=== PATIENT | male | born 1965 | race Caucasian/White ===

== ENCOUNTER 2017-05-07 18:20 | Emergency (ER) | payer MEDICARE ==
[~2017-05-07] VITALS: Ht 185.4 cm; Wt 99.8 kg
[~2017-05-07 18:20] MED LIST: CPR500T PO; KETO-22 PO; METR375C PO; METR500T PO; OXYC-12 PO; OXYC40TA46 PO; PRM25T PO; [UNRECOGNIZED DRUG - REMARK]
[2017-05-07] MEDS ORDERED: ESCI20TA45 (18:51)
--- NOTE | 2017-05-07 18:52 | ED EENT ---
History of Present Illness General Chief Complaint: Dental Problems/Pain Stated Complaint: JAW PAIN/DISCOMFORT Source: patient History of Present Illness Time seen by provider: 18:45 Initial Comments PT ARRIVES VIA POV FROM HOME C/O SEVERE PAIN IN RIGHT JAW FOR 3-4 DAYS--WOKE UP WITH POPPING IN RIGHT JAW, NOW HAS SEVERE PAIN IN JAW AND IS UNABLE TO OPEN MOUTH DUE TO PAIN NO INJURY NO FEVER OR RECENT ILLNESS NO DENTAL PAIN--DOES NOT HAVE ANY BACK TEETH NO HISTORY OF SIMILAR C/O PAIN RADIATING TO RIGHT EAR AND HAS A MILD/DULL FRONTAL HEADACHE RATES PAIN 2/10 AT REST, 10/10 AT WORST NO RELIEF WITH HIS REGULAR PAIN MEDICATIONS, ( TAKES PAIN MEDICATION FOR NEUROPATHY/RADICULOPATHY FROM CHRONIC BACK PAIN / LEFT LEG PAIN--OXYCONTIN + OXYCODONE) PT DOES STATE HE WAS CHEWING GUM THE NIGHT BEFORE ONSET OF SYMPTOMS, AND DOES NOT NORMALLY CHEW GUM. PCP: DR. MORE Allergies and Home Medications Allergies Coded Allergies: butorphanol (Verified Allergy, Unknown, 09/10/07) Home Medications Cyclobenzaprine HCl 10 Mg Tablet, 10 MG PO Q8H, #15 Prescribed by: BRIGETTE VILLALPANDO on 05/07/171901 Escitalopram Oxalate 20 Mg Tablet, (Reported) Methylprednisolone 4 Mg Tab.ds.pk, 4 MG PO UD, #1 Prescribed by: BRIGETTE VILLALPANDO on 05/07/171901 Oxycodone HCl 40 Mg Tab.er.12h, 40 MG PO, (Reported) Oxycodone Hcl/Acetaminophen 1 Each Tablet, 1-2 PO Q4H PRN, (Reported) Promethazine Hcl 25 Mg Tablet, 1 TAB PO QID PRN, #40 (Reported) Review of Systems Constitutional: no symptoms reported Eyes: No Symptoms Reported Ears: See HPI Nose: no symptoms reported Mouth: see HPI Throat: no symptoms reported Respiratory: no symptoms reported Cardiovascular: no symptoms reported Gastrointestinal: no symptoms reported Musculoskeletal: see HPI Skin: no symptoms reported, No rash Neurological: See HPI, Headache, Pre-Existing Deficit Hematologic/Lymphatic: No Symptoms Reported Immunological/Allergic: no symptoms reported Past Edsufub-Mlgjzi-Fsogds Hx Patient Social History Alcohol Use: Denies Use Recreational Drug Use: No Smoking Status: Current Everyday Smoker (1 09/05 PPD) Type Used: Cigarettes Recent Foreign Travel: No Contact w/Someone Who Travel: No Recent Hopitalizations: No Immunizations Up To Date Tetanus Booster (TDap): Less than 5yrs Seasonal Allergies Seasonal Allergies: No Surgeries History of Surgeries: Yes Surgeries: Adenoidectomy, Tonsillectomy Respiratory History of Respiratory Disorde: Yes Respiratory Disorders: Pneumonia Cardiovascular History of Cardiac Disorders: No Neurological History of Neurological Disord: Yes Neurological Disorders: Neuropathy Reproductive System Hx Reproductive Disorders: No Sexually Transmitted Disease: No HIV/AIDS: No Genitourinary History of Genitourinary Disor: No Gastrointestinal History of Gastrointestinal Di: Yes Gastrointestinal Disorders: Hemorrhoids Musculoskeletal History of Musculoskeletal Dis: Yes (CHRONIC BACK PAIN WITH LEFT LEG RADICULOPATHY/NEUROPATHY) Musculoskeletal Disorders: Chronic Back Pain Endocrine History of Endocrine Disorders: No HEENT History of HEENT Disorders: No Cancer History of Cancer: No Psychosocial History of Psychiatric Problem: No Integumentary History of Skin or Integumenta: No Blood Transfusions History of Blood Disorders: No Family Medical History Significant Family History: Diabetes Physical Exam Vital Signs Vital Sign - Last 12Hours 05/07/17 18:44 Temp 96.2 Pulse 88 Resp 18 B/P (MAP) 156/97 Pulse Ox 98 O2 Delivery Room Air General Appearance: WD/WN, no apparent distress Eyes: bilateral eye normal inspection, bilateral eye PERRL, bilateral eye EOMI Ears: bilateral ear auricle normal, bilateral ear canal normal, bilateral ear TM normal Nose: normal inspection Mouth/Throat: pharynx normal, dental tenderness, No mandibular swelling, No maxillary swelling, other (BACK TEETH MISSING BILATERALLY. TENDERNESS OVER RIGHT TMJ, WITH MUCH TRISMUS DUE TO RIGHT TMJ PAIN ON MOUTH OPENING. NO CLICKING /GRINDING/POPPING OF TMJ AND SYMMETRIC TMJ JOINT MOVEMENT. NO POST AURICULAR PAIN OR TENDERNESS. NO RASH. NO PARESTHESIAS OR FACIAL DROOP) Neck: non-tender, full range of motion, supple, normal inspection Cardiovascular: regular rate, rhythm, no murmur Respiratory: normal breath sounds, no respiratory distress, no accessory muscle use Neurologic/Psychiatric: dietitian consultant II-XII nml as tested, no motor/sensory deficits, alert, normal mood/affect, oriented x 3 Skin: normal color, warm/dry, No rash Progress/Results/Core Measures Results/Orders My Orders Orders - BRIGETTE VILLALPANDO DO Ketorolac Injection (Toradol Injection) (05/07/17 19:00) Orphenadrine Injection (Norflex Injectio (05/07/17 19:00) Diphenhydramine Injection (Benadryl Inje (05/07/17 19:00) Prednisone Tablet (Deltasone Tablet) (05/07/17 19:00) Rx-Cyclobenzaprine Tablet (Rx-Flexeril T (05/07/17 18:58) Vital Signs/I&O Vital Sign - Last 12Hours 05/07/17 18:44 Temp 96.2 Pulse 88 Resp 18 B/P (MAP) 156/97 Pulse Ox 98 O2 Delivery Room Air Departure Impression Impression: Primary Impression: RIGHT TMJ PAIN Disposition: HOME, SELF-CARE Condition: Stable Departure-Patient Inst. Referrals: YAAKOV MORE MD (PCP/Family) Primary Care Physician Patient Instructions: Temporomandibular Joint (TMJ) Disorders (DC) Add. Discharge Instructions: ALTERNATE ICE AND HEAT TO AREA AT 20 MINUTE INTERVALS CONTINUE YOUR REGULAR MEDICATIONS PRESCRIBED FOLLOW UP WITH YOUR DR IN 2-3 DAYS IF NO BETTER All discharge instructions reviewed with patient and/or family. Voiced understanding. Scripts Cyclobenzaprine HCl (Cyclobenzaprine HCl) 10 Mg Tablet 10 MG PO Q8H, #15 TAB Prov: BRIGETTE VILLALPANDO DO 05/07/17 Methylprednisolone (Medrol) 4 Mg Tab.ds.pk 4 MG PO UD, #1 PKG Prov: BRIGETTE VILLALPANDO DO 05/07/17 BRIGETTE VILLALPANDO DO May 07, 2017 18:52
[2017-05-07] MEDS ORDERED: RX-CYCLOBENZAPRINE 10 MG (FLEXERIL) TAB PPK#3 PO STA (18:58)
[2017-05-07] MEDS ORDERED: KETOROLAC 60 MG/2 ML VIAL IM ONE (19:00)
[2017-05-07] MEDS ORDERED: diphenhydrAMINE 50 MG/ML INJ (BENADRYL) IM ONE (19:00)
[2017-05-07] MEDS ORDERED: predniSONE 20 MG TAB PO ONE (19:00)
[2017-05-07] MEDS ORDERED: ORPHENADRINE 60 MG/2 ML (NORFLEX) AMP IM ONE (19:00)
[2017-05-07] MEDS ORDERED: CYCL10TA9 PO (19:02)
[2017-05-07] MEDS ORDERED: METH4TAB PO (19:02)
[2017-05-07 19:43] VITALS: BP 146/84
== END 2017-05-07 19:42 | disposition home or self-care (01) ==
LOC: EDUNIT# 18:20 → ER 18:22
DX: R68.84 Jaw pain (principal); F17.210 Nicotine dependence, cigarettes, uncomplicated; Z90.49 Acquired absence of other specified parts of digestive tract; Z87.09 Personal history of other diseases of the respiratory system
CPT/HCPCS: 96372; 99284

== ENCOUNTER → 2018-10-10 | Outpatient (CLI) | payer MEDICARE ==
[~2018-10-10] MED LIST changes: +CYCL10TA9 PO; +ESCI20TA45; +METH4TAB PO
--- NOTE | 2018-10-10 12:20 | Diagnostic Imaging Report ---
PROCEDURE: US carotid duplex, bilateral. TECHNIQUE: Multiple real-time grayscale images were obtained over the carotid arteries in various projections, bilaterally. Additional spectral analysis and color Doppler duplex images were also obtained. INDICATION: Amaurosis fugax. FINDINGS: No significant plaquing is identified in either carotid system. Velocities are normal bilaterally. No velocity elevation or stenosis is seen. Note is made that the vertebral arteries are not visualized. Parameters based on the consensus panel Garcia-Scale and Doppler ultrasound criteria published July 2003, Radiology, Volume 229. DOPPLER (peak systolic velocity M/S Right Left CCA 0.91 0.77 ICA Proximal 0.60 0.43 ICA Mid 0.63 0.69 ICA Distal 0.57 0.80 RATIO 0.69 1.04 ECA 0.91 0.87 VERT NOT SEEN NOT SEEN IMPRESSION: No evidence of a hemodynamically significant carotid stenosis. Dictated by: Dictated on workstation # [id number]
== END ==
LOC: RAD 11:11
PROVIDERS: ATTEND Internal Medicine
DX: G45.3 Amaurosis fugax (principal)
CPT/HCPCS: 93880

== ENCOUNTER 2018-10-12 08:44 | Emergency (ER) | payer MEDICARE ==
[~2018-10-12] VITALS: Ht 185.4 cm; Wt 108.9 kg
[2018-10-12] MEDS ORDERED: LIDOCAINE 1% INJ 20 ML 20 ML VIAL ONE (09:07)
[2018-10-12] MEDS ORDERED: LIDOCAINE 1% INJ 20 ML 20 ML VIAL INJ ONE (09:15)
--- NOTE | 2018-10-12 09:27 | ED Lower Extremity ---
General Chief Complaint: Lower Extremity Stated Complaint: FOREIGN OBJECT LT FOOT Source: patient, family Exam Limitations: no limitations History of Present Illness Date Seen by Provider: Oct 12, 2018 Time Seen by Provider: 09:22 Initial Comments This 50-year-old white male presents after sustaining a puncture wound to his left foot. Patient has a foreign body in his foot. Patient denies loss sensation range of motion extremity. Patient denies other injury. Patient is not diabetic. The foreign body penetrated through the patient's sock. He was not wearing tennis shoes. Allergies and Home Medications Allergies Coded Allergies: butorphanol (Verified Allergy, Unknown, 09/10/07) Home Medications Cyclobenzaprine HCl 10 Mg Tablet, 10 MG PO Q8H Prescribed by: BRIGETTE VILLALPANDO on 05/07/171901 Methylprednisolone 4 Mg Tab.ds.pk, 4 MG PO UD Prescribed by: BRIGETTE VILLALPANDO on 05/07/171901 Oxycodone Hcl/Acetaminophen 1 Each Tablet, 1-2 PO Q4H PRN, (Reported) Promethazine Hcl 25 Mg Tablet, 1 TAB PO QID PRN, (Reported) Patient Home Medication List Home Medication List Reviewed: Yes Review of Systems Constitutional: No chills EENTM: no symptoms reported Respiratory: No cough Cardiovascular: No chest pain Gastrointestinal: No abdominal pain, No nausea Genitourinary: no symptoms reported Musculoskeletal: No back pain Skin: see HPI, other Psychiatric/Neurological: No Symptoms Reported (puncture wound left foot.) Past Yewhxnt-Uiunjh-Qaqmiu Hx Past Med/Social Hx: Reviewed Nursing Past Med/Soc Hx Patient Social History Type Used: Cigarettes Recent Hopitalizations: No Immunizations Up To Date Tetanus Booster (TDap): Less than 5yrs Seasonal Allergies Seasonal Allergies: No Past Medical History Surgeries: Yes Adenoidectomy, Tonsillectomy Respiratory: Yes Pneumonia Cardiac: No Neurological: Yes Neuropathy Reproductive Disorders: No Sexually Transmitted Disease: No HIV/AIDS: No Genitourinary: No Gastrointestinal: Yes Hemorrhoids Musculoskeletal: Yes (CHRONIC BACK PAIN WITH LEFT LEG RADICULOPATHY/NEUROPATHY) Chronic Back Pain Endocrine: No HEENT: No Cancer: No Psychosocial: No Integumentary: No Blood Disorders: No Family Medical History Diabetes Physical Exam Vital Signs Capillary Refill : Height, Weight, BMI Height: 6'1.00" Weight: 220lbs. oz. 99.354225zb; BMI Method:Stated General Appearance: WD/WN, mild distress HEENT: normal ENT inspection Neck: normal inspection Cardiovascular: regular rate, rhythm Respiratory: lungs clear Gastrointestinal: normal bowel sounds, non tender Feet: left foot other (there is a puncture wound to the distal portion plantar aspect left foot over the metatarsal phalangeal region of the middle toe.) Neurologic/Tendon: normal sensation, normal motor functions, normal tendon functions Neurologic/Psychiatric: no motor/sensory deficits, alert, normal mood/affect, oriented x 3 Skin: normal color, other (puncture wound with foreign body left foot) Progress/Results/Core Measures Results/Orders My Orders Orders - YAAKOV CIFUENTES MD Lidocaine 1% Inj 20 Ml (Xylocaine 1% Inj (10/12/18 09:15) Lidocaine 1% Inj 20 Ml (Xylocaine 1% Inj (10/12/18 09:07) Dipht,Pertuss(Acell),Tet Adult (Boostrix (10/12/18 09:30) Progress Progress Note : Time: 09:24 Progress Note After discussion of the risks and benefits of the procedure the patient was agreeable to an incision and exploration for his foreign body left foot. Betadine was used topically to the skin. 1 percent plain Xylocaine was used for local anesthesia. Small incision was created with a number 11 blade. The foreign body which consisted of the terminal one fourth of a toothpick was removed from the subcutaneous tissue. The wound was cleaned and dressed. The patient received a TDP injection Departure Impression Primary Impression: Foreign body (FB) in soft tissue Disposition: 01 HOME, SELF-CARE Condition: Improved Departure-Patient Inst. Decision time for Depature: 09:26 Referrals: YAAKOV MORE MD (PCP/Family) Primary Care Physician Patient Instructions: Wound Care (DC) Add. Discharge Instructions: Soak foot in warm soapy water twice a day. Ibuprofen and/or Tylenol for pain. Watch for signs of infection. Return if any problems or questions. Keep the dressing in place for the next 3 days. All discharge instructions reviewed with patient and/or family. Voiced understanding. YAAKOV CIFUENTES MD Oct 12, 2018 09:27
[2018-10-12] MEDS ORDERED: TETANUS,DIPTH,PERTUSS P/F (BOOSTRIX) 0.5 ML VIAL IM ONE (09:30)
[2018-10-12 10:05] VITALS: BP 130/87
--- OUTSIDE RECORDS SUMMARY | 2018-10-12 12:31 | XMS REPORT | Continuity of Care Document ---
Author Author [facility] Organization [facility] Address Unknown Phone Unavailable Allergies Active Description Code Type Severity Reaction Onset Reported/Identified Relationship to Patient Clinical Status Yes butorphanol [id number] Drug Allergy Unknown N/A 09/10/2007 Medications There is no data. Problems Date Dx Coded Attending Type Code Diagnosis Diagnosed By 05/25/2013 LYDIA MCKEON MD Ot 009.0 INFECTIOUS ENTERITIS NOS 05/25/2013 LYDIA MCKEON MD Ot 038.9 SEPTICEMIA NOS 05/25/2013 LYDIA MCKEON MD Ot 305.1 TOBACCO USE DISORDER 05/25/2013 LYDIA MCKEON MD Ot 355.9 MONONEURITIS NOS 05/25/2013 LYDIA MCKEON MD Ot 724.2 LUMBAGO 05/25/2013 LYDIA MCKEON MD Ot 995.91 SEPSIS 08/31/2016 SIMON VORA MD Ot S82.401A UNSP FRACTURE OF SHAFT OF RIGHT FIBULA, 08/31/2016 SIMON VORA MD Ot S99.921A UNSPECIFIED INJURY OF RIGHT FOOT, INITIA 08/31/2016 SIMON VORA MD Ot W17.2XXA FALL INTO HOLE, INITIAL ENCOUNTER 08/31/2016 SIMON VORA MD Ot Y92.[address] IN MOBILE HOME PLACE 08/31/2016 SIMON VORA MD Ot Y99.8 OTHER EXTERNAL CAUSE STATUS 09/01/2016 SIMON VORA MD Ot S82.401A UNSP FRACTURE OF SHAFT OF RIGHT FIBULA, 09/01/2016 SIMON VORA MD Ot S99.921A UNSPECIFIED INJURY OF RIGHT FOOT, INITIA 09/01/2016 SIMON VORA MD Ot W17.2XXA FALL INTO HOLE, INITIAL ENCOUNTER 09/01/2016 SIMON VORA MD Ot Y92.[address] IN MOBILE HOME PLACE 09/01/2016 DIONY VIRK, SIMON Mario Ot Y99.8 OTHER EXTERNAL CAUSE STATUS 05/07/2017 KWASI , BRIGETTE Mcclendon Ot F17.210 NICOTINE DEPENDENCE, CIGARETTES, UNCOMPL 05/07/2017 KWASI , BRIGETTE K Ot R68.84 JAW PAIN 05/07/2017 KWASI DO, BRIGETTE K Ot Z87.09 PERSONAL HISTORY OF OTHER DISEASES OF 05/07/2017 KWASI DO, BRIGETTE K Ot Z90.49 ACQUIRED ABSENCE OF OTHER SPECIFIED PART 05/09/2017 KWASI DO, BRIGETTE K Ot F17.210 NICOTINE DEPENDENCE, CIGARETTES, UNCOMPL 05/09/2017 KWASI DO, BRIGETTE K Ot R68.84 JAW PAIN 05/09/2017 KWASI DO, BRIGETTE K Ot Z87.09 PERSONAL HISTORY OF OTHER DISEASES OF 05/09/2017 KWASI , BRIGETTE K Ot Z90.49 ACQUIRED ABSENCE OF OTHER SPECIFIED PART 05/10/2017 KWASI DO, BRIGETTE K Ot F17.210 NICOTINE DEPENDENCE, CIGARETTES, UNCOMPL 05/10/2017 KWASI DO, BRIGETTE K Ot R68.84 JAW PAIN 05/10/2017 KWASI , BRIGETTE Hakan Ot Z87.09 PERSONAL HISTORY OF OTHER DISEASES OF 05/10/2017 KWASI , BRIGETTE Mcclendon Ot Z90.49 ACQUIRED ABSENCE OF OTHER SPECIFIED PART 10/10/2018 DERIK VIRK, YAAKOV Jacobs Ot G45.3 AMAUROSIS FUGAX 10/10/2018 YAAKOV MORE MD Ot G45.3 AMAUROSIS FUGAX 10/12/2018 YAAKOV MORE MD Ot G45.3 AMAUROSIS FUGAX Procedures There is no data. Results There is no data. Encounters ACCT No. Visit Date/Time Discharge Status Pt. Type Provider Facility Loc./Unit Complaint [id number] 10/12/2018 08:46:00 10/12/2018 10:04:00 DIS Emergency YAAKOV CIFUENTES MD [facility] ER FOREIGN OBJECT LT FOOT [id number] 05/07/2017 18:22:00 05/07/2017 19:42:00 DIS Emergency BRIGETTE VILLALPANDO DO [facility] ER JAW PAIN/DISCOMFORT [id number] 08/31/2016 17:43:00 08/31/2016 19:20:00 DIS Emergency DIONY VIRK, SIMON Mario [facility] ER RT FOOT PAIN [id number] 05/22/2013 09:22:00 05/25/2013 14:00:00 DIS Inpatient MIKE VIRK, LYDIA Mcclendon [facility] 4TH SEPSIS ENTERITIS ABD PAIN NAUSEA/VOMITING/DIARRHEA [id number] 05/12/2013 11:15:00 05/12/2013 23:59:59 CLS Outpatient [id number] 10/10/2018 11:11:00 ACT Outpatient DERIK VIRK, YAAKOV Jacobs [facility] RAD AMAUROSIS FUGAX
== END 2018-10-12 10:04 | disposition home or self-care (01) ==
LOC: EDUNIT# 08:44 → ER 08:46
DX: S90.852A Superficial foreign body, left foot, initial encounter (principal); Z88.8 Allergy status to other drugs, medicaments and biological substances; Z79.52 Long term (current) use of systemic steroids; Z90.89 Acquired absence of other organs; Z87.01 Personal history of pneumonia (recurrent); Z87.19 Personal history of other diseases of the digestive system; Z23 Encounter for immunization; W26.8XXA Contact with other sharp object(s), not elsewhere classified, initial encounter
CPT/HCPCS: 28190; 90715

== ENCOUNTER → 2019-12-25 | Outpatient (CLI) | payer MEDICARE ==
--- NOTE | 2019-12-25 12:06 | Diagnostic Imaging Report ---
EXAMINATION: CHEST (PA AND LATERAL). CLINICAL INDICATION: 54-year-old male, shortness of breath. COMPARISON: February 26, 2010. FINDINGS: Stable overall appearance of the cardiomediastinal silhouette. There is no identified pneumothorax. There is no pleural effusion. There is no identified focal airspace consolidation. There are very mild disc degenerative changes of the thoracic spine. IMPRESSION: No identified acute cardiopulmonary abnormality. Dictated by: Dictated on workstation # [id number]
== END ==
LOC: CARD 11:17
PROVIDERS: ATTEND Internal Medicine
DX: R06.02 Shortness of breath (principal); Z87.891 Personal history of nicotine dependence
CPT/HCPCS: 71046

== ENCOUNTER → 2020-01-13 | Outpatient (CLI) | payer MEDICARE | LOC: CARD 13:06 | PROVIDERS: ATTEND Internal Medicine | DX: R06.00 Dyspnea, unspecified (principal); R06.02 Shortness of breath | CPT/HCPCS: 93306 ==

== ENCOUNTER → 2021-05-13 | Outpatient (CLI) | payer OTHER, MEDICARE ==
[~2021-05-13] MED LIST changes: +ESCI20TA39; -ESCI20TA45
== END ==
LOC: LABNPT 06:30
PROVIDERS: ATTEND Internal Medicine
DX: Z20.822 Contact with and (suspected) exposure to COVID-19 (principal)
CPT/HCPCS: 87635

== ENCOUNTER → 2022-08-24 | Outpatient (CLI) | payer MEDICARE ==
[~2022-08-24] MED LIST changes: +CYCL10TA25 PO; -CYCL10TA9 PO
--- NOTE | 2022-08-24 08:46 | Diagnostic Imaging Report ---
PROCEDURE: US Gallbladder. TECHNIQUE: Multiple real-time grayscale images were obtained over the right upper quadrant in various projections. INDICATION: Nausea and right upper quadrant pain. Liver is normal in size at 16 cm. Portal vein is patent and shows normal direction of flow. There is generalized increased echogenicity throughout the liver consistent with hepatic steatosis. No mass is identified. The gallbladder is somewhat difficult to visualize due to overlying bowel gas and patient body habitus. There is some questionable gallbladder wall thickening measuring up to 5 mm. No definite stones or sludge are identified. The pancreas and aorta were obscured. Common bile duct was obscured. IVC is patent. Right kidney is without calculi or hydronephrosis. There is no ascites. IMPRESSION: 1. Hepatic steatosis. 2. Limited visualization of the gallbladder. There does appear to be some questionable gallbladder wall thickening. If there is concern for acute cholecystitis, nuclear medicine HIDA scan may be useful for further evaluation. Dictated by: Dictated on workstation # [id number]
== END ==
LOC: CARD 08:00
PROVIDERS: ATTEND Internal Medicine
DX: K76.0 Fatty (change of) liver, not elsewhere classified (principal)
CPT/HCPCS: 76705; 93225; 93226

== ENCOUNTER → 2022-09-12 | Outpatient (CLI) | payer MEDICARE ==
--- NOTE | 2022-09-12 14:35 | Diagnostic Imaging Report ---
INDICATION: Right upper quadrant abdominal pain with nausea. COMPARISON: None Tc-99m Choletec 5.36 mCi IV followed by 8 ounces of oral Ensure FINDINGS: The upper abdomen was imaged for 45 minutes with the gamma camera. There is normal appearance of activity in the liver. There is activity in the common duct and gallbladder by 45 minutes. After 45 minutes, the patient received 8 ounces of oral Ensure. After an additional 45 minutes of imaging, the gallbladder ejection fraction was calculated to be 61% which is normal. IMPRESSION: Normal hepatobiliary study with GBEF of 61%. Dictated by: Dictated on workstation # [id number]
== END ==
LOC: CARD 12:45
PROVIDERS: ATTEND Internal Medicine
DX: R10.11 Right upper quadrant pain (principal); R11.0 Nausea
CPT/HCPCS: 78227; A9537

== ENCOUNTER 2022-09-21 05:40 | Outpatient (CLI) | payer MEDICARE ==
[~2022-09-21] VITALS: Ht 182.9 cm; Wt 119.3 kg
[2022-09-22] MEDS ORDERED: MTP25TSR PO (11:07)
[2022-09-22] MEDS ORDERED: AMIT50TA3 PO (11:07)
== END 2022-09-22 11:09 | disposition home or self-care (01) ==
LOC: PREOP 05:40
PROVIDERS: ATTEND Internal Medicine
DX: Z01.818 Encounter for other preprocedural examination (principal)

== ENCOUNTER 2022-09-30 07:44 | Day surgery (SDC) | payer MEDICARE ==
--- NOTE | 2022-09-20 06:49 | HISTORY AND PHYSICAL ---
DATE OF SERVICE: 09/30/2022 EGD HISTORY AND PHYSICAL HISTORY OF PRESENT ILLNESS: The patient is a 56-year-old white male who reports a 3-month history of right upper quadrant abdominal pain with intermittent nausea and belching with some occasional dysphagia to solids. He had occasional questionable dysphagia to solids. He has noted no bright red blood per rectum or melena. He underwent abdominal sonography which revealed some mild gallbladder wall thickening without any other inflammatory change and no evidence for stones. We then proceeded with HIDA scan with CCK, which was normal with an ejection fraction of greater than 60%, which did not exacerbate his symptoms. He is still having belching questionable dysphagia and right upper quadrant abdominal pain. He denies any weight loss. PAST MEDICAL HISTORY: He is not aware of any past history of peptic ulcer disease. He is disabled secondary to lumbar radiculopathy, which is workman's compensation related. 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 He ambulates independently with a limp. PHYSICAL EXAMINATION: GENERAL: Reveals a white male, appearing to be in mild distress due to abdominal discomfort. VITAL SIGNS: Blood pressure 134/82, heart rate 82 and regular. CHEST: Clear. CARDIOVASCULAR: Reveals regular rate and rhythm without murmur, S3, or S4. ABDOMEN: Reveals epigastric and right upper quadrant pain to palpation with some guarding in the right upper quadrant. No rebound noted. No mass or organomegaly noted. EXTREMITIES: Reveal no cyanosis, clubbing. Trace bilateral edema. ASSESSMENT AND PLAN: The patient is being set up for diagnostic EGD due to right upper quadrant pain with nausea and dysphagia with negative workup for cholecystitis as noted in the HPI. The patient will continue to abstain from aspirin and nonsteroidal medication in the interim. Job ID: [id number] DocumentID: [id number] Dictated Date: 09/15/2022 15:50:16 Grinder Chipper Date: 09/15/2022 16:22:00 Dictated By: YAAKOV MORE MD
[~2022-09-30] VITALS: Ht 182.9 cm; Wt 119.3 kg
[~2022-09-30 07:44] MED LIST changes: +AMIT50TA3 PO; +MTP25TSR PO
--- NOTE | 2022-09-30 07:51 | Pre-Op Note & Conscious Sedat ---
Pre-Operative Progress Note Date H&P Reviewed: Sep 30, 2022 Time H&P Reviewed: 07:51 History & Physical: H&P Reviewed, Patient Examed, No changes noted Pre-Op Diagnosis: epigastric pain Conscious Sedation Pre-Proced ASA Score 2 For ASA 3 and 4: Consider anesthesia and medical clearance. Also, for patients with a history of failed moderate sedation consider anesthesia. Airway Lungs Heart ASA score ASA 1: a normal healthy patient ASA 2: a patient with a mild systemic disease (mid diabetes, controlled hypertension, obesity ASA 3: a patient with a severe systemic disease that limits activity (angina, COPD, prior Myocardial infarction) ASA 4: a patient with an incapacitating disease that is a constant threat to life (CHF, renal failure) ASA 5: a moribund patient not expected to survive 24 hrs. (ruptured aneurysm) ASA 6: a declared brain- patient whose organs are being harvested. For emergent operations, add the letter E after the classification Mallampati Classification Grade 2 Sedation Plan Analgesia, Amnesia, Plan communicated to team members, Discussed options with patient/fam, Discussed risks with patient/fam The patient is an appropriate candidate to undergo the planned procedure, sedation, and anesthesia. The patient immediately re-assessed prior to indication. YAAKOV MORE MD Sep 30, 2022 07:51
[2022-09-30] MEDS ORDERED: LACTATED RINGERS 1,000 ML IV STA (07:54)
[2022-09-30] MEDS ORDERED: HURRICAINE EXT TUBE (BENZOCAINE) XX PRN (08:00)
[2022-09-30 08:08] VITALS: BP 126/79
[2022-09-30] MEDS ORDERED: proPOfol 200 MG/20 ML (DIPRIVAN) VIAL IV ONE ×2 (08:55→09:17)
[2022-09-30] MEDS ORDERED: MIDAZOLAM 2 MG/2 ML (VERSED) VIAL ONE (08:55)
[2022-09-30 09:17] VITALS: BP 109/62
[2022-09-30 09:22] VITALS: BP 98/62
--- NOTE | 2022-09-30 09:24 | Progress Note-Post Operative ---
Post-Procedure Note Physician (s)/Shrimp Cleaner (s) Physician YAAKOV MORE MD Pre-Procedure Diagnosis Pre-Procedure Diagnosis: epigastric pain Post-Procedure Diagnosis Post-operative diagnosis: The endoscope was inserted into the oral cavity and under direct visualization the esophagus is intubated. The endoscope was passed down the esophagus through the stomach into the second portion of the duodenum. A careful inspection was made as the endoscope was withdrawn. Findings: The posterior pharynx epiglottis arytenoid aperture and true and false vocal folds were unremarkable on gross inspection. The proximal mid and distal esophagus are unremarkable as well. No evidence for esophagitis was noted no evidence for varices rings webs or strictures. No evidence for hiatal hernia was noted. The cardia and the fundus were unremarkable. There is some linear areas of erythema in the antrum a biopsy was obtained and submitted for H. pylori as well as histopathology. The pylorus the pyloric channel duodenal bulb and second portion duodenum were unremarkable. A/P 1. Mild antral gastritis to gross inspection is present with otherwise normal esophagogastroduodenoscopy. Biopsies are pending for histopathology and H. pylori evaluation with further recommendations pending. YAAKOV MORE MD Sep 30, 2022 09:24
[2022-09-30 09:25] VITALS: BP 95/61
[2022-09-30 09:30] VITALS: BP 102/61
[2022-09-30 09:56] VITALS: BP 94/72
--- NOTE | 2022-09-30 10:02 | Anesthesia-General Post-Op ---
MAC Patient Condition Mental Status/LOC: Same as Preop Cardiovascular: Satisfactory Nausea/Vomiting: Absent Respiratory: Satisfactory Pain: Controlled Complications: Absent Post Op Complications Complications None Follow Up Care/Instructions Patient Instructions None needed. Anesthesiology Discharge Order Discharge Order Patient is doing well, no complaints, stable vital signs, no apparent adverse anesthesia problems. No complications reported per nursing. SIS VENTURA DO Sep 30, 2022 10:02
== END 2022-09-30 10:11 | disposition home or self-care (01) ==
LOC: ENDO 07:44
PROVIDERS: ATTEND Internal Medicine
DX: K29.70 Gastritis, unspecified, without bleeding (principal); E66.9 Obesity, unspecified; Z87.891 Personal history of nicotine dependence; Z68.35 Body mass index [BMI] 35.0-35.9, adult

== ENCOUNTER → 2022-10-26 | Outpatient (CLI) | payer MEDICARE ==
[~2022-10-26] MED LIST changes: +HOLD METFORMIN - RECEIVED CONTRAST 20 ML VIAL IV SCH; +IOHEXOL 350 MG/ML 100 ML (OMNIPAQUE 350) VIAL IV ONE; +NS 100 ML (IVPB) BAG IV ONE
[2022-10-26 11:04] LABS: CREATININE SERUM 1.06 MG/DL (0.60-1.30)
--- NOTE | 2022-10-26 16:14 | Diagnostic Imaging Report ---
PROCEDURE: CT abdomen with contrast only. TECHNIQUE: Multiple contiguous axial images were obtained through the abdomen after the administration of intravenous contrast. Auto Exposure Controls were utilized during the CT exam to meet ALARA standards for radiation dose reduction. INDICATION: Pain, nausea COMPARISON: 05/22/2013 FINDINGS: 0.4 cm right lower lobe pulmonary nodule, series 2, image 17. Mild bibasilar scarring and/or atelectasis. Enteric contrast is identified within the distal esophagus. No significant hiatal hernia. The liver and spleen are unremarkable. The adrenal glands are unremarkable. The pancreas is unremarkable. The gallbladder is unremarkable. The kidneys and visualized portions of the bilateral ureters are unremarkable. Mild vascular calcifications within the abdominal aorta and its branch vessels without aneurysmal dilatation of the abdominal aorta. A fat-containing left posterolateral abdominal hernia is present. This is small in size. No bowel obstruction or pneumatosis. No significant adenopathy, free air, or free fluid within the abdomen. The main portal vein is patent. Postsurgical changes within the upper lumbar spine. Scattered osseous degenerative changes. No acute osseous abnormality IMPRESSION: New 0.4 cm right lower lobe pulmonary nodule. If patient is at high risk for lung cancer, a followup CT of the chest is recommended in one year. If patient is at low risk for lung cancer, no definitive followup of this pulmonary nodule is necessary. Contrast within the distal esophagus, which may relate to underlying esophageal dysmotility versus gastroesophageal reflux. Significant hiatal hernia. Small sized fat-containing left posterolateral abdominal wall hernia. Additional findings as above. Dictated by: Dictated on workstation # [id number]
== END ==
LOC: RAD 09:48
PROVIDERS: ATTEND Internal Medicine
DX: K44.9 Diaphragmatic hernia without obstruction or gangrene (principal); K43.9 Ventral hernia without obstruction or gangrene; R91.1 Solitary pulmonary nodule
CPT/HCPCS: 36415; 74160; 82565; 84520